=== PATIENT | male | born 1995 | race Caucasian/White ===

== ENCOUNTER 2023-10-21 00:03 | Inpatient (IN) | payer OTHER ==
[2023-10-21 02:18] VITALS: BMI 17.6
[2023-10-21] MEDS ORDERED: ACETAMINOPHEN 325 MG TABLET (FP) PO PRN (03:26)
[2023-10-21] MEDS ORDERED: IBUPROFEN 600 MG TABLET (FP) PO PRN (03:26)
[2023-10-21] MEDS ORDERED: BENZOCAINE/MENTHOL (CHLORASEPTIC ) LOZENGE MM PRN (03:26)
[2023-10-21] MEDS ORDERED: POLYETHYLENE GLYCOL (HEALTHYLAX) 3350 17 GM PACKET PO PRN (03:26)
[2023-10-21] MEDS ORDERED: ONDANSETRON *ODT* 4 MG TABLET SL PRN (03:26)
[2023-10-21] MEDS ORDERED: BENZONATATE 200 MG CAPSULE PO PRN (03:26)
[2023-10-21] MEDS ORDERED: DICYCLOMINE HCL 10 MG CAPSULE PO PRN (03:26)
[2023-10-21] MEDS ORDERED: guaiFENesin 600 MG TABLET.ER (FP) PO PRN (03:26)
[2023-10-21] MEDS ORDERED: MAGNESIUM HYDROX 2400MG/30ML ORAL SUSPENSION 30 ML CUP PO PRN (03:26)
[2023-10-21] MEDS ORDERED: BISMUTH SUBSALICYLATE 524 MG/30 ML PO PRN (03:26)
[2023-10-21] MEDS ORDERED: NALOXONE HCL (KLOXXADO) 8 MG SPRAY NS PRN (03:26)
[2023-10-21] MEDS ORDERED: NALOXONE HCL 0.4 MG/ML VIAL IM PRN (03:26)
[2023-10-21] MEDS ORDERED: MAG HYDROX/AL HYDROX/SIMETH 30 ML UNIT-DOSE CUP PO PRN (03:26)
[2023-10-21] MEDS ORDERED: IBUPROFEN 400 MG TABLET (FP) PO PRN (03:26)
[2023-10-21] MEDS ORDERED: LOPERAMIDE HCL 2 MG CAPSULE PO PRN (03:26)
[2023-10-21] MEDS: hydrOXYzine PAMOATE 25 MG CAPSULE (FP) PO PRN (05:02)
[2023-10-21] MEDS: METHOCARBAMOL 500 MG TABLET PO PRN (05:02)
[2023-10-21] MEDS: PRENATAL VITAMINS W/ FOLIC ACID TABLET (FP) PO SCH (10:10)
[2023-10-21] MEDS: NICOTINE POLACRILEX 2 MG GUM BUC PRN (10:10)
[2023-10-21] MEDS: NICOTINE 14 MG/24 HOURS TOPICAL PATCH TD SCH (10:40)
[2023-10-21] MEDS: THIAMINE HCL 100 MG TABLET (FP) PO SCH (21:25)
[2023-10-21] MEDS: MELATONIN 5 MG TABLETS PO SCH (21:25)
[2023-10-21] MEDS ORDERED: MELATONIN 5 MG TABLETS PO SCH (22:00)
[2023-10-22 06:12] VITALS: RESP 16
[2023-10-22 08:37] VITALS: BP 128/78; PULSE 68; TEMP 98.4
[2023-10-22 10:43] LABS: HEMOGLOBIN 13.1 GM/dL (11.7-16.9); MCHC 35.3 g/dl (32.0-35.9); MEAN CELL VOLUME 96.4 fl (80-96); MEAN PLT VOLUME 8.8 fl (7.5-11.1); PLATELET COUNT 162 10^3/uL (134-434); POTASSIUM 3.8 mmol/L (3.5-5.1); RBC 3.84 M/mm3 (4.00-5.60); RDW 12.8 % (11.9-15.9); WHITE BLOOD COUNT 5.7 K/mm3 (4.0-10.0)
[2023-10-22 10:46] LABS: BLOOD UREA NITROGEN 13.2 mg/dL (7-18); CALCIUM 8.8 mg/dL (8.5-10.1)
[2023-10-22 10:49] LABS: CREATININE 0.7 mg/dL (0.55-1.3)
[2023-10-22 10:51] LABS: BILIRUBIN,TOTAL 1.7 mg/dL (0.2-1); TOT PROT 6.4 g/dl (6.4-8.2)
== END 2023-10-22 13:07 | disposition home or self-care (01) | DRG 775 ==
LOC: YASAS 00:03 → Y3N 04:14
PROVIDERS: ADMIT Allergy & Immunology; ATTEND Surgery
PROC: HZ2ZZZZ Detoxification Services for Substance Abuse Treatment (ICD-10-PCS; principal; 2023-10-21)
DX: F10.20 Alcohol dependence, uncomplicated (principal); F17.210 Nicotine dependence, cigarettes, uncomplicated; G47.00 Insomnia, unspecified; Z28.310 Unvaccinated for COVID-19; Z28.9 Immunization not carried out for unspecified reason; Z88.0 Allergy status to penicillin
CPT/HCPCS: 36415; 80053; 80305; 80307; 85027; 86780; 87635; 93005; 93010